=== PATIENT | female | born 1955 | race Caucasian/White ===

== ENCOUNTER → 2017-10-15 12:52 | Outpatient (CLI) | payer BC, SELFPAY ==
--- NOTE | 2017-10-15 12:56 | RAD_ITS ---
STUDY: X-RAY - RIGHT KNEE REASON FOR EXAM: Female, 62 years old. Pain TECHNIQUE: 4 view(s) of the knee. COMPARISON: 01/06/2017 FINDINGS: There is marked osteoarthritis predominating at the medial joint compartment. There is slight lateral subluxation of the tibia. There is prominent osteochondral lesion at the patella. There is no acute fracture. There is no osseous destruction. RAD/Knee 4 or More Views IMPRESSION: Marked osteoarthritis of the right knee Electronically Signed: Max Wagoner MD at 22:07 EST Tel , Service support ,
== END ==
PROVIDERS: Family Provider Family Medicine; PCP Family Medicine; Visit Provider Orthopaedic Surgery
DX: M25.561 Pain in right knee (principal)
CPT/HCPCS: 73564

== ENCOUNTER 2017-12-18 08:00 | Outpatient (RCR) | payer BC, SELFPAY ==
--- NOTE | 2017-11-17 08:29 | HP.PTEVAL_ITS ---
Patient's Visit Information MAURICE SMITH is a 62 year old F referred to Physical Therapy by Marleny Stevens, DO [facility] with a diagnosis of Bilateral Knee OA. Date of Evaluation: 11/17/17 Physical Therapist: Maria Guadalupe Kelly - Visit Plan Frequency: 2x /Week Duration: 4 Weeks Plan: Focus on LE s/s and ROM- function - Subjective Subjective: Patient reports both knees are bad- is planning on having TKR on the right and needs to strength the left then will switch. Is having it done at [facility]- due to working at [employer] and they are paying for everything. Surgery is not scheduled yet- has to get down to 225lbs. Dr. Stevens cleaned out the bone fragment in January- now she has more fragments. Both knees are bad- the pain is the same. Worst: 10/10 Agg: standing in one spot for to long, pulling pallets, hurrying. Best: 0/10 Eases: reclyner, TENS unit. Pain is located in the whole knee cap- no radiating pain. Describes pain as sharp sometimes and sometimes its dull depending on the mood the knee is in. No N/T in the toes. Is waiting to hear if the MD will override the weight loss to do the knee due to pain. 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 Plans to go back to work after surgery. Sleep: disturbed- sides and back. X-rays recently showed OA. Last injection was about 6 months ago- but did not help. PMHx: arthritis, HTN, Meds: HTN medication, Potassium, anti- inflammatory for her knees, heart burn medication, restless leg medication- unsure of the names. - Objective Posture: FH, RS, increased kyphosis patient is very overweight. Gait:antalgic- wide DANIEL- toes turned out- lumbering- SLS: WS but unable to remove hands from plinth. HR/TR: able but reports discomfort. Palpation: tender along medial and lateral joint line bilaterally. ROM: left: 10-100 degrees right: 10-80 degrees with pain at end ranges. Strength: ankle: 5/5, Knee: 4/5, Hip: 4/5 Core : poor. Flex: HS: severe, Gastroc: moderate - Goals Goal 1:: Patient will be I with HEP and progression Goal Time Frame: 4-6 Weeks Goal 2:: Patient will SLS for 10 sec without LOB Goal Time Frame: 4-6 Weeks Goal 3:: Patient will ambulate >300 feet with a normalized gait pattern Goal Time Frame: 4-6 Weeks Goal 4:: Patient will asc/desc 8 recip with 2 HR Goal Time Frame: 4-6 Weeks - Rehabilitation Potential Physical Therapy Diagnosis: Patient presents with hypomobility- she has decrease ROM, strength and muscular endurance leading to abnormal gait and decreased function. Rehabilitation Potential: Fair - Anticipated Interventions Patient/Client Instruction: Educate patient on: Benefits of Fitness Program For the Purpose of:: To increase tolerance to activity/condition/position Therapeutic Exercise to Include: Strength training, Endurance training, Balance training, Body mechanics, Postural training, Flexibilty training, Gait and locomotor training, In an aquatic setting, Passive ROM, Active ROM For the Purpose of:: To improve muscle performance and motor function Thank you for the opportunity to evaluate your patient. For Medicare and Medicare HMO plans, please review the plan of care and approve it. It will need to be FAXED BACK to us at [phone] for Medicare purposes. Please let me know if there are questions or concerns regarding this plan of care. Physician Signature: Date:
--- NOTE | 2017-12-18 08:28 | HP.PTDCSUM_ITS ---
HP - PT D/C Summary It has been my pleasure to treat MAURICE SMITH under orders from Marleny Stevens DO, for the diagnosis of Bilateral Knee OA for a total of 9 visit(s) . Discharge Date: Please see the following information for a summary of their discharge status. - Subjective Subjective: Patient reports that the knees are better- she was able to go mushroom hunting and used a cane. Better when she isn't working. Plans to continue to work at losing weight to get to 225 for surgery. - Pain BLAT knees Pain Intensity (Out of 10): 3 - Objective Objective/Function: Posture: FH, RS, increased kyphosis patient is overweight. Gait:antalgic- wide DANIEL- toes turned out- lumbering- SLS: WS but unable to remove hands from plinth. HR/TR: able Palpation: tender along medial and lateral joint line bilaterally. ROM: left: 10-90 degrees right: 10-90 degrees with pain at end ranges. Strength: ankle: 5/5, Knee: 4+/5, Hip: 4+/5 Core: fair. Flex: HS: severe, Gastroc: moderate - Goals Goal 1:: Patient will be I with HEP and progression Goal Progress: Goal Met Goal 2:: Patient will SLS for 10 sec without LOB Goal Progress: Progressing Goal 3:: Patient will ambulate >300 feet with a normalized gait pattern Goal Progress: Progressing Goal 4:: Patient will asc/desc 8 recip with 2 HR Goal Progress: Progressing - Plan Plan: Discharge to I HEP - D/C Information If there are questions or concerns regarding this patient's physical therapy, please feel free to call me at [phone]. Thank you for the referral of this patient. Sincerely, Maria Guadalupe Kelly
== END 2017-12-18 13:53 | disposition home or self-care (01) ==
LOC: PT 08:00
PROVIDERS: Family Provider Family Medicine; PCP Family Medicine; Visit Provider Orthopaedic Surgery
DX: M25.562 Pain in left knee (principal); M25.561 Pain in right knee; M17.0 Bilateral primary osteoarthritis of knee
CPT/HCPCS: 97113; 97161; 97164

== ENCOUNTER → 2018-08-26 07:01 | Outpatient (CLI) | payer BC, SELFPAY ==
[2017-01-14 09:05] VITALS: BMI 49.1
[2018-08-26 08:05] LABS: Thyroid Stim Hormone (TSH) 2.01 uIU/mL (0.358-3.74)
--- OUTSIDE RECORDS SUMMARY | 2018-10-30 19:43 | XMS RPT_ITS ---
:1955 Author Organization OHIP Care Team Providers Name Role Phone Marleny Stevens Attending Unavailable TL HOBSON Referring Unavailable Tammie Thakkar Attending Unavailable Tammie Thakkar Referring Unavailable TL HOBSON Primary Care Unavailable Marleny Stevens Attending Unavailable JOCE, TL Referring Unavailable JOCE, TL Primary Care Unavailable Chicorelli, Marleny Attending Unavailable Chicorelli, Marleny Referring Unavailable JOCE, TL Primary Care Unavailable Chicorelli, Marleny Attending Unavailable JOCE, TL Primary Care Unavailable Chicorelli, Marleny Referring Unavailable Dari Buitrago [employer] Attending Unavailable JOCE, TL Referring Unavailable Joce, Tl Attending Unavailable Joce, Tl Primary Care Unavailable Joce, Tl Attending Unavailable Joce, Tl Primary Care Unavailable Joce, Tl Admitting Unavailable Joce, Tl Attending Unavailable Joce, Tl Primary Care Unavailable Joce, Tl Attending Unavailable Joce, Tl Primary Care Unavailable Joce, Tl Admitting Unavailable Joce, Tl Attending Unavailable Joce, Tl Primary Care Unavailable Joce, Tl Admitting Unavailable Joce, Tl Attending Unavailable Joce, Tl Primary Care Unavailable Joce, Tl Admitting Unavailable Joce, Tl Attending Unavailable Joce, Tl Primary Care Unavailable Joce, Tl Admitting Unavailable Joce, Tl Attending Unavailable Joce, Tl Primary Care Unavailable Joce, Tl Admitting Unavailable Joce, Tl Attending Unavailable Joce, Tl Primary Care Unavailable PROBLEMS PROBLEMS DATE TYPE CONDITION / CODE ATTENDING STATUS SOURCE 08/26/2018 Unknown 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, unspecified Community / E04.9(ICD-10) Hospital Repository 08/26/2018 Unknown E27.8 - Other Tammie Thakkar Active [place] specified disorders Community of adrenal gland / Hospital E27.8(ICD-10) Repository 12/18/2017 Unknown M25.562 - Pain in [facility], Active [place] left knee / [facility] M25.562(ICD-10) Hospital Repository 10/15/2017 Unknown M25.561 - Pain in [facility], Active [place] right knee / [facility] M25.561(ICD-10) Hospital Repository 10/15/2017 Unknown M17.0 - Bilateral Chicorelli, Active [place] primary [facility] osteoarthritis of Hospital knee / M17.0(ICD-10) Repository PROCEDURES PROCEDURES No Procedure Records FoundRESULTS RESULTS THYROID STIM HORMONE Collected: 08/26/2018 Status: F Source: [place] (TSH) 7:07 AM [facility] HOSPITAL REPOSITORY TYPE CODE TESTS RESULT OUT OF RANGE REFERENCE UNITS LAB L501.9520 0.358-3.74 uIU/mL Normal TSH 2.01 Performed By: #### L501.9520 #### [facility] [address] [place], [address] CORTISOL SERUM Collected: 08/26/2018 Status: F Source: [place] 7:07 AM [facility] REPOSITORY TYPE CODE TESTS RESULT OUT OF RANGE REFERENCE UNITS LAB L509.6000 3.09-22.40 ug/dL Normal CORTISOL 7.90 Result Comment: Adult (AM) 4.30 - 22.40 ug/dL Adult (PM) 3.09 - 16.66 ug/dL Performed By: #### L509.6000 #### [facility] [address] [place], [address] MA MAMM SCREEN Observed: 08/04/2018 Status: F Source: [place] W/CAD IF PERF AND 11:50 AM [facility] 3D KYM REPOSITORY Exam Date/Time: 08/04/2018 12:06 EST Reason for Exam: SCREENING 3D/LUIS;Screening Report STUDY: Digital mammography screening with luis; 08/04/2018 12:06 pm ACCESSION NUMBER(S): [id number] ORDERING CLINICIAN: Tl Hobson INDICATION: Screening. COMPARISON: Comparison is made to prior digital mammograms dated109/28/2016 and 07/22/2016 FINDINGS: CC and MLO 2D digital mammograms and digital breast tomosynthesis images were obtained of the bilateral breasts. 3-D volume images were reconstructed in 4 views at an independent workstation as 1 mm slices through the breasts in both the CC and MLO projections. There are areas of scattered fibroglandular tissue. No discrete mass or focal asymmetry is identified. No suspicious microcalcifications or foci of architectural distortion are seen. There has been no significant change. This study was interpreted with CAD. IMPRESSION: No mammographic evidence of malignancy. BI-RADS CATEGORY: Category: 1 - Negative. Recommendation: Normal Interval Follow-up, Over Age 40. Recall Interval: 12 Months. Breast Density: Scattered Fibroglandular Density. FINAL REPORT Dictated: 08/05/2018 8:25 am Rudi Bey MD Signed (Electronic Signature): 08/05/2018 8:25 am Signed by: Rudi Bey MD Technologist: CRYSTAL Assessment: BI-RADS Category 1-Negative Recommendation: Normal interval follow-up FERRITIN Collected: 07/07/2018 Status: F Source: [place] 8:53 AM [facility] REPOSITORY TYPE CODE TESTS RESULT OUT OF RANGE REFERENCE UNITS LAB [id number](L 8.0-150.0 ng/mL OINC) Normal Ferritin Lvl 21.0 Performed By: #### [id number] #### YANET [employer] [address] [place] [address] CORTISOL LVL Collected: 07/07/2018 Status: F Source: [place] 8:53 AM [facility] REPOSITORY TYPE CODE TESTS RESULT OUT OF REFERENCE UNITS RANGE LAB [id number](LO 6.7-22.6 microgram/d INC) Low L Cortisol Lvl 5.0 Performed By: #### [id number] #### YANET [employer] [address] [place] [address] ACTH Collected: 07/07/2018 Status: F Source: [place] 8:53 AM [facility] REPOSITORY TYPE CODE TESTS RESULT OUT OF RANGE REFERENCE UNITS LAB [id number](LO 7.2-63.3 pg/mL INC) Normal ACTH 18.5 Result Comment: ACTH reference interval for samples collected between 7 and 10 AM. Performed At: [facility] [id number] Chasidy Camejo PhD Ph:[phone] Performed By: #### [id number] #### YANET [employer] [address] [place] [address] ALDOSTERONE Collected: 07/07/2018 Status: F Source: [place] 8:53 AM [facility] REPOSITORY TYPE CODE TESTS RESULT OUT OF RANGE REFERENCE UNITS LAB [id number](L 0.0-30.0 ng/dL OINC) Aldosterone Normal 6.8 Result Comment: This test was developed and its performance characteristics determined by [facility]. It has not been cleared or approved by the Food and Drug Administration. Performed At: [facility] [id number] Tee Berkowitz MD Ph:[phone] Performed By: #### [id number] #### YANET [employer] [address] [place] [address] FREE T4 Collected: 06/22/2018 Status: F Source: [place] 7:58 AM [facility] REPOSITORY TYPE CODE TESTS RESULT OUT OF RANGE REFERENCE UNITS LAB [id number](LO 0.58-1.64 ng/dL INC) Normal T4 Free 1.03 Result Comment: Patients receiving more than 5mg/day of biotin may have interference in test results. A sample should be taken no sooner than eight hours after previous dose. Performed By: #### [id number] #### YANET [facility] [address] [place] [address] CORTISOL LVL Collected: 06/22/2018 Status: F Source: [place] 7:58 AM [facility] REPOSITORY Order Comment: AM Level TYPE CODE TESTS RESULT OUT OF REFERENCE UNITS RANGE LAB [id number](LO 6.7-22.6 microgram/d INC) Low L Cortisol Lvl 4.2 Performed By: #### [id number] #### [place] [id number] TSH Collected: 01/06/2018 Status: F Source: [place] 8:58 AM [facility] REPOSITORY TYPE CODE TESTS RESULT OUT OF RANGE REFERENCE UNITS LAB [id number](LO 0.30-5.60 mIU/m INC) Normal TSH 1.27 Performed By: #### [id number] #### YANET [address] [address] PT D/C SUMMARY (1) Observed: 12/18/2017 Status: F Source: [place] 8:28 AM [facility] REPOSITORY [facility] Therapy [address] [place] [address] Fax REHABILITATION SERVICES DISCHARGE SUMMARY MR#: [id number] Acct: [id number] Name: MAURICE HOBSON Rep #: [id number] : 1955 62 From: Maria Guadalupe Kelly DPT Referring Dr.: Marleny Stevens DO Status: REG RCR Insurance: ANTHEM SELF PAY INSURANCE HP - PT D/C Summary It has been my pleasure to treat MAURICE HOBSON under orders from Marleny Stevens DO, for the diagnosis of Bilateral Knee OA for a total of 9 visit(s). Discharge Date: Please see the following information for a summary of their discharge status. - Subjective Subjective: Patient reports that the knees are better- she was able to go mushroom hunting and used a cane. Better when she isn't working. Plans to continue to work at losing weight to get to 225 for surgery. - Pain BLAT knees Pain Intensity (Out of 10): 3 - Objective Objective/Function: Posture: FH, RS, increased kyphosis patient is overweight. Gait:antalgic- wide DANIEL- toes turned out- lumbering- SLS: WS but unable to remove hands from plinth. HR/TR: able Palpation: tender along medial and lateral joint line bilaterally. ROM: left: 10-90 degrees right: 10-90 degrees with pain at end ranges. Strength: ankle: 5/5, Knee: 4+/5, Hip: 4+/5 Core: fair. Flex: HS: severe, Gastroc: moderate - Goals Goal 1:: Patient will be I with HEP and progression Goal Progress: Goal Met Goal 2:: Patient will SLS for 10 sec without LOB Goal Progress: Progressing Goal 3:: Patient will ambulate >300 feet with a normalized gait pattern Goal Progress: Progressing Goal 4:: Patient will asc/desc 8 recip with 2 HR Goal Progress: Progressing - Plan Plan: Discharge to I HEP - D/C Information If there are questions or concerns regarding this patient's physical therapy, please feel free to call me at [phone]. Thank you for the referral of this patient. Sincerely, Maria Guadalupe Kelly <Electronically signed by Maria Guadalupe Kelly DPT> 12/18/17 0828 CC: Marleny Stevens DO; Tl Hobson MD ELR Signed INITAL EVALUATION (1) Observed: 11/17/2017 Status: F Source: [place] - PT 8:29 AM [facility] REPOSITORY [facility] [address] [place] [address] Fax REHABILITATION SERVICES INITIAL EVALUATION MR#: [id number] Acct: [id number] Name: MAURICE HOBSON Rep #: [id number] : 1955 62 From: Maria Guadalupe Kelly DPT Referring Dr.: Marleny Stevens DO Status: REG RCR Insurance: [employer]M SELF PAY INSURANCE Patient's Visit Information MAURICE HOBSON is a 62 year old F referred to Physical Therapy by DO ARNULFO Denton with a diagnosis of Bilateral Knee OA. Date of Evaluation: 11/17/17 Physical Therapist: Maria Guadalupe Kelly - Visit Plan Frequency: 2x /Week Duration: 4 Weeks Plan: Focus on LE s/s and ROM- function - Subjective Subjective: Patient reports both knees are bad- is planning on having TKR on the right and needs to strength the left then will switch. Is having it done at [facility]- due to working at [employer] and they are paying for everything. Surgery is not scheduled yet- has to get down to 225lbs. Dr. Stevens cleaned out the bone fragment in January- now she has more fragments. Both knees are bad- the pain is the same. Worst: 10/10 Agg: standing in one spot for to long, pulling pallets, hurrying. Best: 0/10 Eases: reclyner, TENS unit. Pain is located in the whole knee cap- no radiating pain. Describes pain as sharp sometimes and sometimes its dull depending on the mood the knee is in. No N/T in the toes. Is waiting to hear if the MD will override the weight loss to do the knee due to pain. 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 Plans to go back to work after surgery. Sleep: disturbed- sides and back. X-rays recently showed OA. Last injection was about 6 months ago- but did not help. PMHx: arthritis, HTN, Meds: HTN medication, Potassium, anti- inflammatory for her knees, heart burn medication, restless leg medication- unsure of the names. - Objective Posture: FH, RS, increased kyphosis patient is very overweight. Gait:antalgic- wide DANIEL- toes turned out- lumbering- SLS: WS but unable to remove hands from plinth. HR/TR: able but reports discomfort. Palpation: tender along medial and lateral joint line bilaterally. ROM: left: 10-100 degrees right: 10-80 degrees with pain at end ranges. Strength: ankle: 5/5, Knee: 4/5, Hip: 4/5 Core: poor. Flex: HS: severe, Gastroc: moderate - Goals Goal 1:: Patient will be I with HEP and progression Goal Time Frame: 4-6 Weeks Goal 2:: Patient will SLS for 10 sec without LOB Goal Time Frame: 4-6 Weeks Goal 3:: Patient will ambulate >300 feet with a normalized gait pattern Goal Time Frame: 4-6 Weeks Goal 4:: Patient will asc/desc 8 recip with 2 HR Goal Time Frame: 4-6 Weeks - Rehabilitation Potential Physical Therapy Diagnosis: Patient presents with hypomobility- she has decrease ROM, strength and muscular endurance leading to abnormal gait and decreased function. Rehabilitation Potential: Fair - Anticipated Interventions Patient/Client Instruction: Educate patient on: Benefits of Fitness Program For the Purpose of:: To increase tolerance to activity/condition/position Therapeutic Exercise to Include: Strength training, Endurance training, Balance training, Body mechanics, Postural training, Flexibilty training, Gait and locomotor training, In an aquatic setting, Passive ROM, Active ROM For the Purpose of:: To improve muscle performance and motor function Thank you for the opportunity to evaluate your patient. For Medicare and Medicare HMO plans, please review the plan of care and approve it. It will need to be FAXED BACK to us at [phone] for Medicare purposes. Please let me know if there are questions or concerns regarding this plan of care. Physician Signature: Date: <Electronically signed by Maria Guadalupe Kelly DPT> 11/17/17 0829 CC: Marleny HOBSON ELR Signed For Medicare only, by signing this I certify the plan of care. Physicians Signature Date ORTHOPEDIC VISIT Observed: 10/15/2017 Status: F Source: [place] REPORT 2:11 PM [facility] REPOSITORY [facility] Orthopaedics AND Sports Medicine [address] [place] [address] [place] [address] OFFICE VISIT Date of Service: 10/15/17 MR#: [id number] Acct: [id number] Name: MAURICE HOBSON Rep #: [id number] : 1955 Provider: Marleny Stevens DO Age/Sex: 62/F [place] [facility] [place]: Signed Intake Intake Visit Reasons: right knee Is patient in pain?: Yes Allergies fexofenadine HCl [From Lalita] Allergy (Verified 01/12/17 14:08) Other budesonide [From Symbicort] Adverse Reaction (Verified 01/12/17 14:08) Other codeine Adverse Reaction (Verified 01/12/17 14:08) Other formoterol fumarate [From Symbicort] Adverse Reaction (Verified 01/06/17 08:05) Other Medications Albuterol IH (ProAir) [Proair Hfa] 2 puff INHALATION PRN PRN 05/06/14 [History Confirmed 01/14/17] Metoprolol Succinate 50 mg PO DAILY 05/06/14 [History Confirmed 01/14/17] Potassium Chloride [Klor-Con 10] 20 meq PO BID 05/06/14 [History Confirmed 01/14/17] Ropinirole HCl [Requip] 0.25 mg PO BID 05/06/14 [History Confirmed 01/14/17] TraMADol [Ultram] 50 mg PO TID 05/06/14 [History Confirmed 01/14/17] Triamterene 75MG/Hctz 50MG [Maxzide] 0.5 tab PO DAILY 05/06/14 [History Confirmed 01/14/17] Budesonide Inhaler 180 mcg [Pulmicort Inhaler 180 mcg] 1 puff INHALATION BID 05/07/14 [History Confirmed 01/14/17] Nabumetone [Relafen] 750 mg PO BID 12/30/15 [History Confirmed 01/14/17] Omeprazole [Prilosec] 20 mg PO DAILY 01/06/17 [History Confirmed 01/14/17] Magnesium 250 mg PO BID 01/12/17 [History Confirmed 01/14/17] Naproxen Sodium [Aleve] 220 mg PO Q12H PRN PRN 01/12/17 [History Confirmed 01/14/17] Ondansetron [Zofran] 8 mg PO Q8H PRN PRN #20 tab 01/14/17 [Rx] Oxycodone HCl/Acetaminophen [Percocet 5/325] 1 - 2 tab PO Q6H PRN PRN #60 tab 01/14/17 [Rx] PFSH Social History Smoking Status: Never smoker HPI right knee: Details: MAURICE HOBSON is a 62 year old F here today for right knee. She states that she has had right knee pain for many years with her pain progressively worsening. Her right is worse than her left. She has increased pain with weightbearing and ambulating. Patients pain is over her medial knee. She states that she would like to have a total knee arthroplasty. Her insurance covers the surgery at 3 other locations but she would need someone to follow her after her surgery and provide pain medications. She denies any recent xrays. ROS Const Reports system reviewed and no additional complaints, except as docu Eyes Reports system reviewed and no additional complaints, except as docu ENT Reports system reviewed and no additional complaints, except as docu Card Reports system reviewed and no additional complaints, except as docu Resp Reports system reviewed and no additional complaints, except as docu GI Reports system reviewed and no additional complaints, except as docu Reports system reviewed and no additional complaints, except as docu Skin/Breast Reports system reviewed and no additional complaints, except as docu Neuro Yes system reviewed and no additional complaints, except as docu Psych Reports system reviewed and no additional complaints, except as docu Endo Reports system reviewed and no additional complaints, except as docu Ortho Exam Right Knee Skin/Wound: Yes CDI Contralateral Normal: No Homans Sign: No Knee ROM: Yes ROM-Extension -20 to 0, Yes ROM-Flexion 0-140 (100) Examination: Yes Med jt line tenderness, Yes Crepitus, Yes Pain with flexion Left Knee Skin/Wound: Yes CDI Contralateral Normal: No Knee ROM: Yes ROM-Extension -20 to 0, Yes ROM-Flexion 0-140 (100) Examination: Yes med jt line tenderness, Yes Pain with flexion Assessment AND Plan 1. Primary osteoarthritis of both knees M17.0 Plan Patient has had injections by her PCP and states that she will talk to them to see what kind injections the primary care doctor wanted me to do because I am not sure when she had her last injection and with the last injection was. Patient states she will bring the information here to us and we can proceed accordingly. Explained that we can't follow her post op care if she has surgery with another surgeon, it would be beneficial to follow up with the one who operates. We did give her a PT script today to begin strengthening of bilateral knees. Instructed to find out what kind of injections she was given recently and if possible we can do steroid injection here for her. Follow up as needed or sooner if pain, swelling, numbness or associated symptoms, or concerns develop. All questions answered. Patient in agreement of plan. Plan Detail Other Orders Orders: Coding Level of Care Code Off vis,est,level 3 Diagnoses Primary osteoarthritis of both knees M17.0 Osteoarthritis type: primary 10/15/17 1411 <Electronically signed by Marleny Stevens DO> Date Marleny Stevens DO Cosigner Signature: Date (if applicable) CC: KNEE 4 OR MORE Observed: 10/15/2017 Status: F Source: [place] VIEWS 12:55 PM [facility] REPOSITORY [facility] Imaging Services [address] [place] [address] Knee 4 or More Views MR#: [id number] Acct: [id number] Name: MAURICE HOBSON Rep #: [id number] : 1955 F 62 From: Max Wagoner MD PCP: TL HOBSON Status: REG CLI Study: Knee 4 or More Views Date of Exam: 10/15/17 Exam# [id number] Ordering Dr: Marleny Stevens DO STUDY: X-RAY - RIGHT KNEE REASON FOR EXAM: Female, 62 years old. Pain TECHNIQUE: 4 view(s) of the knee. COMPARISON: 01/06/2017 FINDINGS: There is marked osteoarthritis predominating at the medial joint compartment. There is slight lateral subluxation of the tibia. There is prominent osteochondral lesion at the patella. There is no acute fracture. There is no osseous destruction. RAD/Knee 4 or More Views IMPRESSION: Marked osteoarthritis of the right knee Electronically Signed: Max Wagoner MD at 22:07 EST Tel , Service support , CC: Marleny Stevens DO; TL HOBSON Police Lieutenant: Signed BMP Collected: 10/07/2017 Status: F Source: [place] 8:40 AM [facility] REPOSITORY TYPE CODE TESTS RESULT OUT OF RANGE REFERENCE UNITS LAB [id number](L 70-99 mg/dL OINC) Glucose Normal Lvl 77 LAB [id number](L 7-18 mg/dL OINC) High BUN 21 LAB [id number](LO 0.6-1.3 mg/dL INC) Normal Creatinine 0.7 LAB [id number](L 5.4-30.0 ratio OINC) Normal BUN/Creat Ratio 30.0 LAB [id number](L 8.4-10.2 mg/dL OINC) Calcium Normal Lvl 9.6 LAB [id number](L 136-145 mEq/L OINC) Sodium Normal Lvl 143 LAB 75466927(L 3.5-5.1 mEq/L OINC) Normal Potassium Lvl 4.0 LAB [id number](L 98-107 mEq/L OINC) High Chloride 109 LAB [id number](L 24.0-30.0 mEq/L OINC) CO2 Normal 26.6 Performed By: #### [id number] #### YANET [facility] [address] [place] [address] EGFR Collected: 10/07/2017 Status: F Source: [place] 8:40 AM [facility] REPOSITORY Order Comment: Order added by Discern Expert. TYPE CODE TESTS RESULT OUT OF RANGE REFERENCE UNITS LAB 92169815(LO mL/min/1.73 INC) m2 Normal eGFR >60 LAB 82310607(LO mL/min/1.73 INC) m2 Normal eGFR AA >60 Performed By: #### [id number] #### YANET [facility] [address] [place] [address] ALLERGIES ALLERGIES DATE TYPE / CODE NAME / CODE REACTION SEVERITY SOURCE 01/12/2017 Drug fexofenadine Other Unknown [place] Allergy/416 HCl/V515898549(RXN Community 989250([facility] ED CT) Repository 01/12/2017 Drug codeine/A541027042 Other Unknown [place] Allergy/416 (RXNORM) [facility] 833748([facility] ED CT) Repository 01/12/2017 Drug budesonide/G100178 Other Unknown [place] Allergy/416 214(RXNORM) [facility] 542631([facility] ED CT) Repository 01/06/2017 Drug formoterol Other Unknown [place] Allergy/416 fumarate/[id number] [facility] 527416([facility] ED CT) Repository Drug/594863 codeine 387382417 Severe [facility] 003([facility] CT) System Repository Drug/112648 Lalita [id number] [facility] 003([facility] CT) System Repository Drug/547360 Symbicort elevated BP [facility] 003([facility] CT) System Repository ENCOUNTERS ENCOUNTERS ADMIT/DISCHARGE ACCOUNT NUMBER ADMITTING ENCOUNTER LOCATION SOURCE CLASS 08/26/2018 [id number] Ambulatory [place] [facility] ding:LAB Repository 08/04/2018/08/04/20 [id number] [facility] [facility] Repository 08/04/2018 [id number] Ambulatory [address] [place] [address] Repository 07/07/2018/07/07/20 [id number] [facility] [facility] Repository 07/07/2018/07/07/20 [id number] Ambulatory [address] ding:[facility] Repository racRoom: Room 1 07/07/2018 [id number] Ambulatory [address] [place] [address] Repository 06/22/2018/06/22/20 [id number] Joce, [address] ding:[facility] Repository 06/22/2018 [id number] Ambulatory [address] [place] [address] Repository 01/06/2018/01/07/20 [id number] Joce, [address] ding:[facility] Repository 01/06/2018/01/07/20 [id number] Ambulatory [address] ding:[facility] Repository racRoom: Room 2 01/06/2018 [id number] Ambulatory [address] [place] [address] Repository 12/22/2017 [id number] Ambulatory BMSBuilding: [place] BMS.[facility] Repository 12/18/2017/12/19/19 [id number] Ambulatory [address] ding:PT Repository 11/03/2017/11/04/[id number] ding:[facility] Repository racRoom: Room 1 10/27/2017 [id number] Ambulatory BMSBuilding: [place] BMS.[facility] Repository 10/15/2017 [id number] Ambulatory [facility] ding:[facility] Repository 10/15/2017/10/16/19 [id number] Ambulatory BMSBuilding: [place] 18 BMS.[facility] Repository 10/07/2017/10/07/[id number] ding:[facility] Repository 10/07/2017/10/07/19 [id number] Ambulatory [address] ding:[facility] Repository racRoom: Room 1 PAYERS PAYERS ENCOUNTER GUARANTOR PAYER SUBSCRIBER SOURCE 08/26/2018 MAURICE RICHARDS TAMIKO [place] [id number] N Insurance:ANTHEMPolic RABERDOB: Community [place] RDLot y Number: [id number] [facility] [address] [place] [address] [id number] Repository 17455Cgd: (234) ve Date:[id number] [phone] (HP) [address] [place] [address] 49085CN: 08/26/2018 Secondary NOT GIVENUNK Shayy Insurance:SELF PAY [facility] Number: Effective Repository Date:2018-08-26 08/04/2018 MAURICE RABERDOB: Primary MAURICE RABERDOB: Vendor N Insurance:[employer]them[employer]olic [id number] [facility] [address] y Number: [address]ository [address] [place] [address] [id number] [address] [place] [address], [id number]: ve Date:[facility] [id number]: Name:[facility] () (HP) 07/07/2018 MAURICE M Primary MAURICE M Spiritism RABERDOB: Insurance:1500 RABERDOB: [facility] N ANTHEMPolicy Number: [id number] [address] Effective [address] Repository [address] [place] [address] Date:2018-01-06 - [address] [place] [address], [phone]: [id number] [place] Name:CD:[id number]: (HP) [address]HSLZ, [place] [address]WP: ([phone]) (HP) [phone] () 07/07/2018 MAURICE RABERDOB: Primary MAURICE RABERDOB: Vendor N Insurance:[employer]them[employer]olic [id number] y Number: [address] Repository [address] [place] [address] [id number] [address] [place] [address] [id number]: Date:Plan Name:Health [place] [id number]: (HP) () 07/07/2018 Secondary MAURICE RABERDOB: Vendor Insurance:[facility] [id number] Hospitals y Number: N [address] Repository [id number] LOT [place], Date:Plan MD [id number]: Name:Health () 06/22/2018 MAURICE RABERDOB: Primary MAURICE RABERDOB: Vendor Insurance:[facility] [id number] y Number: [address] Repository [address] [place] [address] [id number] [address] [place] [address], [id number]: Date:Plan Name:Health [place] [id number]: () () 06/22/2018 Secondary MAURICE RABERDOB: Vendor Insurance:[facility] [id number] [facility] y Number: N [address] Repository [id number] [address] [place] [address], Date:Plan MD [id number]: Name:Health () 01/06/2018 MAURICE M Primary MAURICE M Spiritism RABERDOB: Insurance:[facility] RABERDOB: [facility] N y Number: Effective [id number] Date:2018-01-06 - N [address] Repository [address] [place] [address] [id number] [address] [place] [address], [id number]: Name:Blue CrossPO BOX MD [address] [place] [address]Mbp: () [id number]: [phone] (HP) () 01/06/2018 MAURICE M Primary MAURICE M Spiritism RABERDOB: Insurance:[facility] RABERDOB: [facility] N ANTHEMPolicy Number: [id number] [address] Effective [address] Repository [address] [place] [address] Date:2017-10-07 - [address] [place] [address], [phone]: [id number] MD Name:CD:[id number] O [address]Xla: (HP) [address]GQJJOQ, [place] [address]WP: [phone] () [phone] () 01/06/2018 MAURICE RABERDOB: [facility] N Insurance:AnthemPolic [id number] y Number: [address] Repository [address] [place] [address] [id number] [address] [place] [address], [id number]: Date:Plan Name:[facility] [id number]: () () 01/06/2018 Secondary MAURICE RABERDOB: Vendor Insurance:Anthem[employer]olic [id number] Hospitals y Number: [address] Repository [id number] [address] [place] [address], Date:Plan MD [id number]: Name:[facility] () 12/22/2017 MAURICE TAMIKO Primary MAURICE MORRISON [place] [id number] Insurance:ANTHEMPolic RABERDOB: Community [address] Number: [id number] [facility] [address] [place] [address] [id number] Repository 10984Yst: ve Date:2425-74-86YN [phone] [address]SCN, [place] -2 (HP) 116[address]CN: 12/22/2017 Secondary NOT GIVENUNK Shayy Insurance:SELF PAY [facility] Number: Effective Repository Date:2017-11-18 12/18/2017 MAURICE MORRISON Primary MAURICE [place] [id number] N Insurance:ANTHEMPolic RABERDOB: Community [address] y Number: [id number] [id number] Repository [address]Fvs: ve Date:4947-31-77BM [phone]~330 [address]WWHVGF, [place] -2 () [id number]: 12/18/2017 Secondary NOT GIVENUNK [place] Insurance:SELF PAY [facility] Number: Effective Repository Date:2017-11-09 11/03/2017 MAURICE Gary Primary MAURICE Root RABERDOB: Insurance:1500 RABERDOB: [facility] N ANTHEMPolicy Number: [id number] Effective [address] Repository [address] [place] [address] Date:2017-11-03 - [address] [place] [address], [phone]: [id number] [place] Name:CD:[id number] O [id number]: (HP) [address]YRK, [place] [address]WP: [phone] () [phone] () 10/27/2017 MAURICE MORRISON Primary MAURICE Lucas [id number] Insurance:ANTHEMPolic RABERDOB: Community [place] [address] Number: [id number] [facility] [id number] Repository [address] [place] [address] ve Date:3579-44-70CE 94888Kpp: [address]YHRDLA, [place] [phone]~330 660[address]RN: [phone] 10/27/2017 Secondary NOT GIVENUNK Shayy Insurance:SELF PAY [facility] Number: Effective Repository Date:2017-10-09 10/15/2017 MAURICE MORRISON Primary MAURICE Lucas [id number] Insurance:ANTHEMPolic RABERDOB: Community [place] [address] Number: [id number] [id number] Repository [address] [place] [address] ve Date:2413-16-11SF 28508Amt: [address]AAHORXM, [place] [phone]~330 51139KS: [phone] 10/15/2017 Secondary NOT GIVENUNK Shayy Insurance:SELF PAY [facility] Number: Effective Repository Date:2017-10-15 10/15/2017 MAURICE MORRISON Primary MAURICE MORRISON Shayy [id number] [place] Insurance:ANTHEMPolic RABERDOB: Community [place] [address] Number: [id number] [id number] Repository [address] [place] [address] ve Date:5076-42-76EA 777[address]Wbg: [address]ZZKZUQF, [place] [phone]~330 31444QX: [phone] 10/15/2017 Secondary NOT GIVENUNK Shayy Insurance:SELF PAY [facility] Number: Effective Repository Date:2017-10-12 10/07/2017 MAURICE M Primary MAURICE Cookie Spiritism RABERDOB: Insurance:ANTHEMPolic RABERDOB: [facility] N y Number: Effective [id number] Date:2017-10-[address] Repository [address] [place] [address] [id number] [address] [place] [address]Uaf: Name:[facility] [address] [place] [address]Wqm: () [id number]: [phone] (HP) () 10/07/2017 MAURICE M Primary MAURICE Cookie Root RABERDOB: Insurance:1500 RABERDOB: [facility] N ANTHEMPolicy Number: [id number] [address] Effective [address] Repository [address] [place] [address] Date:2017-07-07 - LOT SRAVANTHI [address]Ogo: [id number] MD Name:CD:[id number]: () [address]MOYXMMATH[place], [place] [address]BH: [phone] () [phone] ()
== END ==
PROVIDERS: Family Provider Family Medicine; PCP Family Medicine; Referring Provider Internal Medicine Endocrinology, Diabetes & Metabolism; Visit Provider Internal Medicine Endocrinology, Diabetes & Metabolism
DX: E04.9 Nontoxic goiter, unspecified (principal); E27.8 Other specified disorders of adrenal gland
CPT/HCPCS: 36415; 82533; 84443

== ENCOUNTER → 2019-12-05 09:37 | Outpatient (CLI) | payer OTHER, SELFPAY ==
[2019-12-02 13:24] VITALS: BMI 49.1
[2019-12-05 12:10] LABS: Absolute Lymphocyte Count 1.64 X10^3/uL (0.83-4.51); Absolute Neutrophil Count 4.8 X10^3/uL (2.0-7.7); Basophil# 0.06 X10^3/uL; Basophil% 0.8 % (0-1); Eosinophil# 0.17 X10^3/uL; Eosinophils% 2.3 % (0-5); Hematocrit 38.2 % (37-47); Hemoglobin 11.5 g/dL (12.0-15.0); Lymphocyte # 1.64 X10^3/ul (4.0); Lymphocyte % 22.1 % (19-41); Mean Corp Hgb Conc 30.1 g/dL (32-36); Mean Corpuscular Hgb 26.5 pg (27.0-32.0); Mean Platelet Vol. 10.9 fl (6.2-12.0); Monocyte# 0.71 X10^3/uL; Monocyte% 9.6 % (0-10); NRBC Flagged by Analyzer 0 % (0-5); Neutrophil # 4.83 X10^3/uL (2.7-7.7); Neutrophil % 65.1 % (47-70); Platelet Count 234 K/mm3 (150-450); RBC Distribution Width CV 13.6 % (11.6-14.6); Red Blood Count 4.34 M/mm3 (4.2-5.4); White Blood Count 7.4 K/mm3 (4.4-11.0)
[2019-12-05 12:23] LABS: AST(SGOT) 33 U/L (15-37); Alanine Aminotransfer ALT/SGPT 47 U/L (13-56); Albumin, Serum 3.7 g/dL (3.2-5.0); Alkaline Phosphatase 123 U/L (45-117); Anion Gap 5 (5-15); BUN 19 mg/dL (7-18); BUN/Creat Ratio 19.1 RATIO (10-20); Calcium,Total 9.1 mg/dL (8.5-10.1); Chloride 108 mmol/L (98-107); Cholesterol 179 mg/dL (200); EST Glomerular Filtration Rate 60 mL/min (>60); Est Glom Filt Rate - Afr Amer 73 mL/min (>60); Globulin 3.7 g/dL (2.2-4.2); Glucose 86 mg/dL (74-106); High Density Lipoprotein 49 mg/dL; Potassium 4.1 mmol/L (3.5-5.1); Protein, Total 7.4 g/dL (6.4-8.2); Sodium Level 140 mmol/L (136-145); Triglycerides 122 mg/dL; Very Low Density Lipoprotein 24 mg/dL (5-40)
== END ==
PROVIDERS: PCP Internal Medicine; Referring Provider Internal Medicine; Visit Provider Internal Medicine
DX: I10 Essential (primary) hypertension (principal)
CPT/HCPCS: 36415; 80053; 80061; 85025

== ENCOUNTER → 2020-01-24 08:18 | Outpatient (CLI) | payer OTHER, SELFPAY ==
[2019-12-02 13:24] VITALS: BMI 49.1
--- NOTE | 2020-01-24 13:16 | PFT ---
INTRODUCTION: The patient is a 64-year-old female who presents for pulmonary function studies secondary to a diagnosis of shortness of breath. Respiratory therapy reports good patient effort. Bronchodilators were used during testing. INTERPRETATION: Forced expiration spirometry demonstrates no evidence of a large airways obstructive ventilatory defect. There was no significant response to aerosolized bronchodilators, based upon strict ATS criteria. Body plethysmography was performed and reveals lung volumes to be within normal limits. Diffusing capacity by single breath CO is reduced at 65% of predicted. IMPRESSION: Isolated reduction in diffusing capacity, which could be related to an underlying pulmonary vascular disorder such as pulmonary hypertension.
== END ==
PROVIDERS: PCP Internal Medicine; Referring Provider Internal Medicine; Visit Provider Internal Medicine
DX: R06.02 Shortness of breath (principal)
CPT/HCPCS: 94060; 94726; 94729

== ENCOUNTER → 2020-02-14 07:39 | Outpatient (CLI) | payer OTHER, SELFPAY ==
[2019-12-02 13:24] VITALS: BMI 49.1
--- NOTE | 2020-02-14 07:41 | ECHOCS_ITS ---
Reason For Study: Dyspnea/SOB Procedure This was a 2D Doppler, Color Flow transthoracic echocardiogram. Technically difficult study due to patients body habitus. Contrast injection performed. The study was technically difficult. Contrast injection was performed. Exam performed in department. Left Ventricle Normal LV size. Left ventricular systolic function is normal. The estimated ejection fraction is 60 %. Diastolic function is indeterminate. No regional wall motion abnormalities noted. Right Ventricle Normal RV size. Normal systolic function. Atria The left atrium is mildly enlarged. Normal right atrium. No doppler evidence for ASD. Mitral Valve There is no mitral annular calcification. Normal mitral valve. Mild (1+) mitral valve insufficiency. Tricuspid Valve Normal tricuspid valve. Trivial tricuspid valve insufficiency. Unable to estimate RV systolic pressure/pulmonary artery pressure due to technically difficult study. Aortic Valve Trisinus/trileaflet aortic valve. Normal aortic valve. Pulmonic Valve The pulmonic valve is not well visualized. Great Vessels The aortic root is not well visualized. Pericardium/Pleural No pericardial effusion. Medication 22 gauge I.V. with prn adaptor inserted into left arm. Diluted definity 6ml given slow IV push to enhance endocardial definition. MMode/2D Measurements & Calculations LVIDd: 5.3 cm IVSd: 1.0 cm LA dimension: 5.3 cm LVIDs: 3.5 cm LVPWd: 1.1 cm RVDd: 3.8 cm FS: 34.0 % LAV(MOD-bp): 63.0 ml LA A4 area: 20.9 cm2 RA A4 area: 19.2 cm2 LAV(MOD-bp) Indexed: 27.4 ml/m2 LAV(MOD-sp2): 60.5 ml LAV(MOD-sp4): 66.5 ml Time Measurements MV dec time: 0.16 sec Doppler Measurements & Calculations MV E max jluis: 108.3 cm/sec Lat Peak E' Jluis: 8.2 cm/sec Med Peak E' Jluis: 7.7 cm/sec MV A max jluis: 109.3 cm/sec E/E' lat: 13.2 E/E' med: 14.0 MV E/A: 0.99 MV V2 max: 124.2 cm/sec MV P1/2t max jluis: 115.6 cm/sec Ao V2 max: 142.7 cm/sec MV max P.2 mmHg MV P1/2t: 58.5 msec Ao max P.1 mmHg MV V2 mean: 68.0 cm/sec MV dec slope: 579.0 cm/sec2 MV mean P.2 mmHg MV V2 VTI: 33.8 cm MVA(P1/2t): 3.8 cm2 LV V1 max: 141.8 cm/sec MR max jluis: 544.5 cm/sec PA V2 max: 116.5 cm/sec LV V1 max P.0 mmHg MR max P.6 mmHg MR mean jluis: 451.9 cm/sec MR mean P.3 mmHg MR VTI: 218.2 cm Interpretation Summary The study was technically difficult. Contrast injection was performed. Left ventricular systolic function is normal. The estimated ejection fraction is 60 %. The left atrium is mildly enlarged. Mild (1+) mitral valve insufficiency. Trivial tricuspid valve insufficiency. Unable to estimate RV systolic pressure/pulmonary artery pressure due to technically difficult study. Diastolic function is indeterminate. Ordering Physician: Sebastián Hahn Referring Physician: Sebastián Hahn Performed By: Erwin Negrete RCS
== END ==
PROVIDERS: PCP Internal Medicine; Referring Provider Internal Medicine; Visit Provider Internal Medicine
DX: R06.00 Dyspnea, unspecified (principal); R06.02 Shortness of breath; I27.20 Pulmonary hypertension, unspecified
CPT/HCPCS: 93306; Q9957; A4216; C8929